=== PATIENT | female | born 1985 | race Caucasian/White ===

== ENCOUNTER → 2018-07-25 | Outpatient (CLI) | payer MEDICAID, MEDICARE ==
[~2018-07-25] MED LIST: AMIT25TA9; BIRTH CONTROL; DESV50TA PO; DIVA-20; HYDR1TAB8 OP; LORA0.5T PO; METR500T PO; NITR-65 PO; NITR100C3 PO; OLN5T PO; OMG1KC; PALI9TAB PO; PRNMV1T; ZPR80C; [UNRECOGNIZED DRUG - CODE]
--- NOTE | 2018-07-25 15:02 | Diagnostic Imaging Report ---
INDICATION: Bilateral breast pain and lumps. COMPARISON: Correlation is made with the diagnostic mammogram from earlier this same day. FINDINGS: Sonographic interrogation of the area of pain and lumps was performed bilaterally. This corresponds to the lower outer right breast and the entire outer left breast. No sonographic abnormality is seen. No solid or cystic breast mass is detected. IMPRESSION: No sonographic abnormality is seen. Continued clinical and self breast exams are recommended to confirm stability of the areas of palpable abnormality. ACR BI-RADS Category 1: Negative. Dictated by: Dictated on workstation # [id number]
--- NOTE | 2018-07-25 16:51 | Diagnostic Imaging Report ---
INDICATION: Bilateral breast pain and lumps. COMPARISON: No prior studies are available for comparison. EXAMINATION: Bilateral 2D and 3D diagnostic mammography was performed with CAD. FINDINGS: Scattered fibroglandular densities are identified, bilaterally. No mass or malignant appearing microcalcifications are seen. The axillae are unremarkable. IMPRESSION: No mammographic features suspicious for malignancy are identified. Even so, direct sonographic interrogation of the areas of pain and lumps is recommended and will be performed today. ACR BI-RADS Category 0: Incomplete. (Needs additional imaging evaluation). Result letter will be mailed to the patient. Note: At least 10% of breast cancer is not imaged by mammography. Dictated by: Dictated on workstation # [id number]
== END ==
LOC: RAD 12:43
PROVIDERS: ATTEND Nurse Practitioner Primary Care
DX: N64.4 Mastodynia (principal)
CPT/HCPCS: 76642; 77066

== ENCOUNTER → 2019-10-06 | Outpatient (CLI) | payer OTHER ==
--- NOTE | 2019-10-06 13:48 | Diagnostic Imaging Report ---
INDICATION: Wrist pain. COMPARISON: March 05, 2011 TECHNIQUE: Six radiographs of bilateral wrists dated October 06, 2019. FINDINGS: Right: No acute fracture or dislocation. No destructive osseous process. Carpal alignment and scapholunate distance are within normal limits. No suspicious radiopaque foreign body. Left: No acute fracture or dislocation. No destructive osseous process. Carpal alignment and scapholunate distances are within normal limits. No suspicious radiopaque foreign body. IMPRESSION: Unremarkable examination without acute osseous abnormality. Dictated by: Dictated on workstation # [id number]
== END ==
LOC: RAD FS 10:52
PROVIDERS: ATTEND Nurse Practitioner
DX: M25.531 Pain in right wrist (principal); M25.532 Pain in left wrist

== ENCOUNTER 2020-04-03 00:24 | Emergency (ER) | payer MEDICARE ==
[~2020-04-03] VITALS: Ht 152 cm; Wt 77.1 kg
--- OUTSIDE RECORDS SUMMARY | 2020-04-03 00:55 | XMS REPORT | Continuity of Care Document ---
Author Organization Unknown Address Unknown Phone Unavailable Allergies There is no data. Medications There is no data. Problems Date Dx Coded Attending Type Code Diagnosis Diagnosed By 07/27/2009 BRAD KELLOGG APRN V22.1 Obstetrical Services Antepartum Care Only 07/27/2009 BRAD KELLOGG APRN V72.42 reported home test was positive 01/07/2015 BRAD KELLOGG APRN 783.1 ABNORMAL WEIGHT GAIN 01/07/2015 BRAD KELLOGG APRN V70.0 ROUTINE GENERAL MEDICAL EXAMINATION AT [facility] Procedures Code Description Performed By Per formed On [facility] 01/07/2015 Results There is no data. Encounters ACCT No. Visit Date/Time Discharge Status Pt. Type Provider Facility Loc./Unit Complaint [id number] 01/07/2015 09:46:00 01/07/2015 23:59: 59 CLS Outpatient BRAD KELLOGG APRN
--- OUTSIDE RECORDS SUMMARY | 2020-04-03 00:55 | XMS REPORT | Clinical Summary ---
Author Author [facility] Organization [facility] Address Unknown Phone Unavailable Care Team Providers Care Route Deliverer Name Role Phone Melyssa Hernandez RN Unavailable Unavailable Diana Wood APRN Unavailable Carmen To NP PCP Unavailable Ligia Lomax MD Unavailable Rebecca Ingram RN Unavailable Unavailable Glenroy Guerrero MD Unavailable Arin Ruffin MD Unavailable Unavailable Krys Menjivar Unavailable Norma Monroy MD Unavailable [phone] Source Comments Some departments are not documenting in the electronic medical record. If you d o not see the information that you expected, contact Release of Information in [facility] Health Information Management department at [phone] for further assistan ce in locating additional records.[facility] Allergies No Known Allergies Medications No known medications Active Problems Problem Noted Date Dehiscence of closure of skin 02/16/2016 Dehiscence of incision 02/15/2016 Tobacco abuse 06/07/2015 Bipolar disorder in full remission 06/07/2015 Borderline personality disorder 06/07/2015 ERON III (vulvar intraepithelial neoplasia III) 06/06 Overview: Ms. Nieves is a 29 yo female presenting with ERON I and III on recent vulvar biopsy. HPI: Presented to Dr. Louis Moreno, PCP for y early exam. Reported genital warts. PAP collected and was negative for lesion or malignancy and was negative for HPV. Colposcopy performed by Dr. Louis Moreno 05/10/15 and findings c/w ERON I (vulvar skin tag) and ERON III (skin fro m posterior forchette). Both margins contain severe squamous dysplas ia laterally. Pertinent medical/social hx: H/O tobacco use. Using nicoderm patche s to quit. H/O Schitzophrenia, Bipolar disorder, d epression, anxiety and OCD. (twins per c/s, males). Presents today (08/23/15) for evaluatio n for response to topical silvadene d/t skin burning from Aldara applicatio n. 02/15/16 Partial simple bilateral vulvect flaca/wide excision of 2 vulvar lesions and laser ablation per Dr. WALSH. RV to ED the evening she was discharged from hospital d/t increased vulvar bleeding and pain. The L vulvar incision was found to have separ ated and was repaired in the ED. Pathology is with dysplasia only. Tessie r margins. Visit with JOHN Hernandez 03/06/16 with healing vulv ar surgical site. Presents 03/22/16 for PLAN: 1. Ms. Nieves is a 30 yo female with N III, s/p bilateral vulvectomy and laser ablation 02/15/[address] WALSH. 2. Visit to ED the evening of procedur e after discharge for wound separation and bleeding with increased pain. L vulvar site repaired. 3. Presents for 5 week postoperative v isit. 4. Exam is routine postoperative witho ut complication. 5. RV L ast Assessment & Plan: Has persistent lesions that have not re sponded to aldara. PLAN: Discussed with patient and /part ner need for surgery to excise. Do combination of laser and excision. Will set up. Family History Medical History Relation Name Comments Diabetes Maternal Grandmother Arthritis-rheumatoid Mother Depression Mother Diabetes Mother Hypertension Mother Cancer-Uterine Paternal Grandmother Relation Name Status Comments Maternal Grandmother Mother Paternal Grandmother Social History Date Tobacco Use Types Packs/Day Years Used Quit: 05/18/2015 Former Smoker Cigarettes 2 15 Smokeless Tobacco: Never Used Drinks/Week oz/Week Comments Alcohol Use No Sex Assigned at Date Recorded Not on file Industry Job Start Date Occupation Not on file Not on file Not on file Travel End Travel History Travel Start No recent travel history available. Last Filed Vital Signs Reading Time Taken Comments Vital Sign 123/76 06/05/2018 10:14 AM CDT Blood Pressure 79 06/05/2018 10:14 AM CDT Pulse 36.7 C (98.1 F) 02/29/2016 2:34 PM CDT Temperature - - Respiratory Rate 99% 06/05/2018 10:14 AM CDT Oxygen Saturation - - Inhaled Oxygen Concentration 77.7 kg (171 lb 3.2 oz) 06/05/2018 10:14 AM CDT Weight 155.5 cm (5' 1.22") 06/05/2018 10:14 AM CDT Height 32.12 06/05/2018 10:14 AM CDT Body Mass Index Plan of Treatment Health Maintenance Due Date Last Done Comments MEDICARE ANNUAL WELLNESS 1987 VISIT DTAP/TDAP VACCINES (1 - 2005 Tdap) HEPATITIS C SCREENING 2005 PHYSICAL (COMPREHENSIVE) 2005 EXAM INFLUENZA VACCINE 06/16/2020 CERVICAL CANCER SCREENING 06/05/2021 06/05/2018 HIV SCREENING Completed 06/06/2015 Results Not on filefrom Last 3 Months Insurance Type Payer Benefit Subscriber ID Effective Phone Address Plan / Dates Group Medicare MEDICARE MEDICARE xxxxxxxxxx 2011-P PART A AND resent B (Home) [place] [address] Advance Directives 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 needed
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
[2020-04-03 01:41] VITALS: BP 144/81
--- NOTE | 2020-04-03 07:53 | Diagnostic Imaging Report ---
PROCEDURE: CT head without contrast. TECHNIQUE: Multiple contiguous axial images were obtained through the brain without the use of intravenous contrast. Auto Exposure Controls were utilized during the CT exam to meet ALARA standards for radiation dose reduction. INDICATION: Headache. COMPARISON: 04/10/2011. FINDINGS: No intracranial hemorrhage, mass effect, hydrocephalus or extra-axial fluid collections. No CT evidence of territorial infarction. Osseous structures are intact. Mild mucosal thickening in the sphenoid sinus. Mastoids are clear. IMPRESSION: No acute intracranial CT findings. Dictated by: Dictated on workstation # [id number]
== END 2020-04-03 01:42 | disposition home or self-care (01) ==
LOC: EDUNIT# 00:24 → ER 00:26
DX: R51 Headache (principal); F41.0 Panic disorder [episodic paroxysmal anxiety]; Z87.891 Personal history of nicotine dependence; Z85.828 Personal history of other malignant neoplasm of skin; Z85.41 Personal history of malignant neoplasm of cervix uteri
CPT/HCPCS: 70450; 84703

== ENCOUNTER 2021-03-04 16:54 | Emergency (ER) | payer MEDICARE ==
[~2021-03-04] VITALS: Ht 152 cm; Wt 77.1 kg
[2021-03-04 17:09] VITALS: BP 154/84
[2021-03-04] MEDS ORDERED: METH4TAB10 PO ×2 (17:22→17:48)
--- NOTE | 2021-03-04 17:23 | ED Lower Extremity ---
General Chief Complaint: Lower Extremity Stated Complaint: RIGHT FOOT/LEG PAIN Source: patient Exam Limitations: no limitations History of Present Illness Date Seen by Provider: Mar 04, 2021 Time Seen by Provider: 17:19 Initial Comments To ER with right anterior ankle pain for about 1 to 2 weeks. No known injury. She had an area that was bruised and swollen. She has been icing it. However her range of motion is decreasing secondary to pain in the anterior ankle and proximal dorsal foot. Onset: just prior to arrival Severity: moderate Pain/Injury Location: right foot, right ankle Method of Injury: unknown Modifying Factors: Worse With Movement Allergies and Home Medications Allergies Coded Allergies: No Known Drug Allergies (Unverified , 09/08/10) Home Medications Hydrocodone Bit/Ibuprofen 1 Each Tablet, 1 EACH OP Q 4 - 6 HRS PRN PRN for PAIN Prescribed by: RL FARFAN on 04/05/142023 Methylprednisolone 4 Mg Tab.ds.pk, 4 MG PO UD PER DOSE PACK INSTRUCTIONS Prescribed by: ANUP CERVANTES on 03/04/21 172 Patient Home Medication List Home Medication List Reviewed: Yes Review of Systems Constitutional: see HPI EENTM: see HPI Respiratory: no symptoms reported Cardiovascular: no symptoms reported Genitourinary: no symptoms reported Musculoskeletal: see HPI Skin: no symptoms reported Psychiatric/Neurological: No Symptoms Reported Past Rkfjltc-Ljjynm-Lrmrvf Hx Patient Social History Type Used: Cigarettes Former Smoker, Quit: Sep 16, 2017 2nd Hand Smoke Exposure: No Recent Hopitalizations: Yes Past Medical History Surgeries: Yes Section, Thyroidectomy, Tonsillectomy Respiratory: No Cardiac: No Neurological: No Reproductive Disorders: Yes (3 MISCARRIAGES) Genitourinary: No UTI-Chronic Gastrointestinal: No Musculoskeletal: No Endocrine: No HEENT: No Cancer: Yes Skin, Cervical Psychosocial: Yes Anxiety, Schizophrenia Integumentary: No Blood Disorders: No Physical Exam Vital Signs Vital Signs - First Documented 03/04/21 17:09 Temp 36.8 Pulse 81 Resp 18 B/P (MAP) 154/84 (107) Pulse Ox 99 Capillary Refill : Height, Weight, BMI Height: 5'0" Weight: 120lbs. oz. 54.331988mi; 33.00 BMI Method:Stated General Appearance: WD/WN, no apparent distress HEENT: PERRL/EOMI, normal ENT inspection Neck: non-tender, full range of motion Respiratory: no respiratory distress, no accessory muscle use Hips: bilateral hip non-tender, bilateral hip normal inspection, bilateral hip normal range of motion Legs: bilateral leg non-tender, bilateral leg normal inspection, bilateral leg normal range of motion Knees: bilateral knee non-tender, bilateral knee normal inspection, bilateral knee normal range of motion Ankles: right ankle pain, right ankle soft tissue tenderness, right ankle other (Minimal ecchymosis to a silver dollar sized area distal anterior tibia) Neurologic/Psychiatric: alert, normal mood/affect, oriented x 3 Skin: normal color, warm/dry Progress/Results/Core Measures Results/Orders My Orders Orders - ANUP CERVANTES APRN Ankle, Right, 3 Views (03/04/21 17:17) Vital Signs/I&O 03/04/21 17:09 Temp 36.8 Pulse 81 Resp 18 B/P (MAP) 154/84 (107) Pulse Ox 99 Departure Impression Primary Impression: Tendonitis of ankle Disposition: 01 HOME, SELF-CARE Condition: Stable Departure-Patient Inst. Decision time for Depature: 17:21 Referrals: [facility] [place]) Primary Care Physician DIVINE CHENEY APRN (Family) Primary Care Physician Patient Instructions: NO INSTRUCTIONS GIVEN Add. Discharge Instructions: All discharge instructions reviewed with patient and/or family. Voiced un derstanding. Scripts Methylprednisolone (Methylprednisolone Dose Pack) 4 Mg Tab.ds.pk 4 MG PO UD for 6 Days, #21 PKG PER DOSE PACK INSTRUCTIONS. Prov: ANUP CERVANTES APRN 03/04/21 ANUP CERVANTES APRN Mar 04, 2021 17:22
--- NOTE | 2021-03-04 17:39 | Diagnostic Imaging Report ---
EXAM: Ankle, right, 3 views INDICATION: Swelling and right ankle pain x 2 weeks. COMPARISON: None. FINDINGS/ IMPRESSION: No fracture or malalignment. Soft tissue shadows are unremarkable. Dictated by: Dictated on workstation # [id number]
== END 2021-03-04 17:43 | disposition home or self-care (01) ==
LOC: EDUNIT# 16:54 → ER 16:56
DX: M77.9 Enthesopathy, unspecified (principal); Z79.891 Long term (current) use of opiate analgesic; Z79.52 Long term (current) use of systemic steroids
CPT/HCPCS: 73610

== ENCOUNTER 2023-02-23 15:22 | Emergency (ER) | payer MEDICAID, MEDICARE ==
[~2023-02-23] VITALS: Ht 165 cm; Wt 77.0 kg
[~2023-02-23 15:22] MED LIST changes: +METH4TAB10 PO
[2023-02-23 15:47] LABS: BILIRUBIN,URINE NEGATIVE (NEGATIVE); CLARITY,URINE CLEAR; COLOR,URINE YELLOW; GLUCOSE, URINE (UA) NEGATIVE (NEGATIVE); KETONES,URINE 1+ (NEGATIVE); LEUKOCYTE ESTERASE ,URINE NEGATIVE (NEGATIVE); NITRITE,URINE NEGATIVE (NEGATIVE); PROTEIN,URINE 2+ (NEGATIVE)
--- NOTE | 2023-02-23 15:54 | ED General ---
General Chief Complaint: General Problems/Pain Stated Complaint: NAUSEA/MIGRAINE/WEAKNESS History of Present Illness Date Seen by Provider: Feb 23, 2023 Time Seen by Provider: 15:40 Initial Comments 37 year old female, patient of Dr. Ornelas at [facility]. + for syphilis, treated yesterday with Bicillin 2.4 million units IM. Since then headache, N/V. Reports minimal fluid and no food intake today due to the nausea and vomiting. Had full STI work up, remainder negative. US 02/12/23 showed normal single interuterine per phone conversation PRODUCER at [facility]. Patient reports being 8 weeks gestation, 6 previous pregnancies, one set of twins. Evaluated at [facility] for vaginal spotting 02/21/23, has improved and occasionally noting dark brown blood when urinating. Wearing pad and no bleeding noted. Timing/Duration: 1-2 Days Allergies and Home Medications Allergies Coded Allergies: No Known Drug Allergies (Unverified , 09/08/10) Patient Home Medication List Home Medication List Reviewed: Yes Hydrocodone Bit/Ibuprofen (Vicoprofen 200-7.5 Mg Tab) 1 Each Tablet, 1 EACH OP Q 4 - 6 HRS PRN PRN for PAIN Prescribed by: RL FARFAN on 04/05/142023 Methylprednisolone (Methylprednisolone Dose Pack) 4 Mg Tab.ds.pk, 4 MG PO UD Prescribed by: ANUP CERVANTES on 03/04/21 174 Ondansetron (Ondansetron Odt) 4 Mg Tab.rapdis, 4 MG PO Q6H PRN for NAUSEA/VOMITING Prescribed by: PONCHO LANDIS on 02/23/23 1646 Review of Systems Review of Systems Constitutional: see HPI, malaise, weakness Respiratory: no symptoms reported, see HPI Cardiovascular: no symptoms reported, see HPI Gastrointestinal: see HPI; No abdominal pain; nausea, vomiting : Yes All Other Systems Reviewed Negative Unless Noted: Yes Past Vzsmerl-Wlxgzq-Mgmolx Hx Past Medical History Surgeries: Yes Section, Thyroidectomy, Tonsillectomy Respiratory: No Cardiac: No Neurological: No : Yes Hx : 7 Hx Para: 4 Hx Total # of Abortions (Sp): 3 Reproductive Disorders: Yes (3 MISCARRIAGES) Genitourinary: No UTI-Chronic Gastrointestinal: No Musculoskeletal: No Endocrine: No HEENT: No Cancer: Yes Skin, Cervical Psychosocial: Yes Anxiety, Schizophrenia Integumentary: No Blood Disorders: No Family Medical History Reviewed Nursing Family Hx Physical Exam Vital Signs Vital Signs - First Documented 02/23/23 15:35 Temp 36.1 Pulse 78 Resp 18 B/P (MAP) 128/75 (92) Pulse Ox 98 Capillary Refill : Height, Weight, BMI Height: 5'0" Weight: 120lbs. oz. 54.060696fj; 33.00 BMI Method:Stated General Appearance: No Apparent Distress, WD/WN HEENT: PERRL/EOMI, TMs Normal, Normal ENT Inspection, Pharynx Normal, Moist Mucous Membranes Neck: Full Range of Motion, Normal Inspection, Non Tender, Supple Respiratory: Chest Non Tender, Lungs Clear, Normal Breath Sounds Cardiovascular: Regular Rate, Rhythm, No Edema, No Murmur, Normal Peripheral Pulses Gastrointestinal: Normal Bowel Sounds, Non Tender, Soft Extremity: Normal Capillary Refill, Normal Inspection, Normal Range of Motion, Non Tender, No Calf Tenderness, No Pedal Edema Neurologic/Psychiatric: Alert, Oriented x3, No Motor/Sensory Deficits, Normal Mood/Affect Progress/Results/Core Measures Suspected Sepsis SIRS Temperature: Pulse: Respiratory Rate: Laboratory Tests 02/23/23 15:34: White Blood Count 16.7H Blood Pressure / Mean: Laboratory Tests 02/23/23 15:34: Creatinine 0.69, Platelet Count 271, Total Bilirubin 0.4 Results/Orders Lab Results Laboratory Tests Test 02/23/23 15:34 02/23/23 15:40 Range/Units White Blood Count 16.7 H 4.3-11.0 10^3/uL Red Blood Count 4.56 3.80-5.11 10^6/uL Hemoglobin 14.9 11.5-16.0 g/dL Hematocrit 43 35-52 % Mean Corpuscular Volume 94 80-99 fL Mean Corpuscular Hemoglobin 33 25-34 pg Mean Corpuscular Hemoglobin Concent 35 32-36 g/dL Red Cell Distribution Width 12.6 10.0-14.5 % Platelet Count 271 130-400 10^3/uL Mean Platelet Volume 9.4 9.0-12.2 fL Immature Granulocyte % (Auto) 1 % Neutrophils (%) (Auto) 83 H 42-75 % Lymphocytes (%) (Auto) 12 12-44 % Monocytes (%) (Auto) 5 0-12 % Eosinophils (%) (Auto) 0 0-10 % Basophils (%) (Auto) 0 0-10 % Neutrophils # (Auto) 13.8 H 1.8-7.8 10^3/uL Lymphocytes # (Auto) 1.9 1.0-4.0 10^3/uL Monocytes # (Auto) 0.8 0.0-1.0 10^3/uL Eosinophils # (Auto) 0.1 0.0-0.3 10^3/uL Basophils # (Auto) 0.0 0.0-0.1 10^3/uL Immature Granulocyte # (Auto) 0.1 0.0-0.1 10^3/uL Neutrophils % (Manual) 81 % Lymphocytes % (Manual) 15 % Monocytes % (Manual) 4 % Eosinophils % (Manual) 0 % Basophils % (Manual) 0 % Band Neutrophils 0 % Blood Morphology Comment NORMAL Sodium Level 138 135-145 MMOL/L Potassium Level 3.6 3.6-5.0 MMOL/L Chloride Level 104 98-107 MMOL/L Carbon Dioxide Level 25 21-32 MMOL/L Anion Gap 9 5-14 MMOL/L Blood Urea Nitrogen 12 7-18 MG/DL Creatinine 0.69 0.60-1.30 MG/DL Estimat Glomerular Filtration Rate 116 BUN/Creatinine Ratio 17 Glucose Level 94 70-105 MG/DL Calcium Level 9.7 8.5-10.1 MG/DL Corrected Calcium 9.5 8.5-10.1 MG/DL Total Bilirubin 0.4 0.1-1.0 MG/DL Aspartate Amino Transf (AST/SGOT) 26 5-34 U/L Alanine Aminotransferase (ALT/SGPT) 73 H 0-55 U/L Alkaline Phosphatase 150 H 40-136 U/L Total Protein 7.3 6.4-8.2 GM/DL Albumin 4.2 3.2-4.5 GM/DL Urine Color YELLOW Urine Clarity CLEAR Urine pH 6.0 5-9 Urine Specific [place] 1.025 H 1.016-1.022 Urine Protein 2+ H NEGATIVE Urine Glucose (UA) NEGATIVE NEGATIVE Urine Ketones 1+ H NEGATIVE Urine Nitrite NEGATIVE NEGATIVE Urine Bilirubin NEGATIVE NEGATIVE Urine Urobilinogen 1.0 < = 1.0 MG/DL Urine Leukocyte Esterase NEGATIVE NEGATIVE Urine RBC (Auto) 3+ H NEGATIVE Urine RBC 50-100 H /HPF Urine WBC NONE /HPF Urine Squamous Epithelial Cells RARE /HPF Urine Crystals NONE /LPF Urine Bacteria NEGATIVE /HPF Urine Casts NONE /LPF Urine Mucus SMALL H /LPF Urine Culture Indicated NO My Orders Orders - PONCHO LANDIS Ua Culture If Indicated (02/23/23 15:42) Urine Bedside (02/23/23 15:42) Cbc With Automated Diff (02/23/23 16:01) Comprehensive Metabolic Panel (02/23/23 16:01) Ed Iv/Invasive Line Start (02/23/23 16:01) Ns Iv 1000 Ml (Sodium Chloride 0.9%) (02/23/23 16:15) Ondansetron Injection (Zofran Injectio (02/23/23 16:15) Acetaminophen Tablet/Caplet (Tylenol T (02/23/23 16:01) Manual Differential (02/23/23 15:34) Medications Given in ED Current Medications Medications Dose Ordered Sig/Munir Route Start Time Stop Time Status Last Admin Dose Admin Ondansetron HCl 4 mg ONCE ONCE IVP 02/23/23 16:15 02/23/23 16:16 DC 02/23/23 16:10 4 MG Vital Signs/I&O 02/23/23 02/23/23 15:35 17:10 Temp 36.1 36.1 Pulse 78 78 Resp 18 18 B/P (MAP) 128/75 (92) 128/75 Pulse Ox 98 98 Capillary Refill : Progress Note : Time: 15:40 Progress Note Patient seen and evaluated, Urine positive. Will check labs, normal saline 1 L per IV, Zofran 4 mg IV for nausea and vomiting, will wait 15 to 20 minutes after the Zofran and give Tylenol 650 mg for the headache. Patient reassured that her symptoms could be related to the Bicillin, she reports minimal to no nausea and vomiting through this to this date. 1620 patient reports improved N/V. Provided CDC guidelines on syphilis and further testing during . Patient and were concerned if it could be false +, informed there would be no reason to test today, since treatment was yesterday. Follow up testing to assure treatment was effective will show if past test was accurate. taking water with no N/V 1700 Discharge instructions and return precautions reviewed. Encouraged spouse and any other partners to be tested and no sexual activity until testing is negative. Patient had no vomiting throughout her stay here. Departure Impression Primary Impression: First trimester Additional Impression: Syphilis Disposition: 01 HOME, SELF-CARE Condition: Improved Departure-Patient Inst. Decision time for Depature: 16:30 Referrals: [facility] (PCP) Primary Care Physician DIVINE CHENEY APRN (Family) Primary Care Physician Patient Instructions: Nausea and Vomiting of , Syphilis (DC), Syphilis Screening Test Add. Discharge Instructions: [place] diet and increase fluids for the next 24 to 48 hours. Resume taking your vitamin. Keep your scheduled follow-up with Dr. Sinclair. Since you tested + for syphilis, any sexual partners need to be tested and no sexual activity until they have tested negative, so you don't get re-infected. Use Zofran every 6-8 hours as needed for nausea and vomiting. You may take Tylenol 650 mg every 8 hours for headache. Return to the emergency department for new, urgent healthcare needs. All discharge instructions reviewed with patient and/or family. Voiced understanding. Scripts Ondansetron (Ondansetron Odt) 4 Mg Tab.rapdis 4 MG PO Q6H PRN for NAUSEA/VOMITING, #8 TAB 0 Refills Prov: PONCHO LANDIS 02/23/23 Copy Copies To 1: JASON SINCLAIR MD, AMY ARNP Feb 23, 2023 15:54
[2023-02-23 15:56] LABS: RBC,URINE 50-100 /HPF
[2023-02-23 15:57] LABS: BACTERIA,URINE NEGATIVE /HPF; SQUAMOUS EPITHELIAL CELL,UR RARE /HPF
[2023-02-23] MEDS ORDERED: ACETAMINOPHEN 325 MG TABLET PO STA (16:01)
[2023-02-23 16:07] LABS: BASOPHILS % (AUTO) 0 % (0-10); EOSINOPHILS # (AUTO) 0.1 10^3/uL (0.0-0.3); EOSINOPHILS % (AUTO) 0 % (0-10); HEMATOCRIT 43 % (35-52); HEMOGLOBIN 14.9 g/dL (11.5-16.0); LYMPHOCYTES # (AUTO) 1.9 10^3/uL (1.0-4.0); LYMPHOCYTES % (AUTO) 12 % (12-44); MEAN CORPUSCULAR HEMOGLOBIN 33 pg (25-34); MEAN CORPUSCULAR HGB CONC 35 g/dL (32-36); MEAN CORPUSCULAR VOLUME 94 fL (80-99); MEAN PLATELET VOLUME 9.4 fL (9.0-12.2); MONOCYTES # (AUTO) 0.8 10^3/uL (0.0-1.0); MONOCYTES % (AUTO) 5 % (0-12); NEUTROPHILS # (AUTO) 13.8 10^3/uL (1.8-7.8); NEUTROPHILS % (AUTO) 83 % (42-75); PLATELET COUNT 271 10^3/uL (130-400); WHITE BLOOD COUNT 16.7 10^3/uL (4.3-11.0)
[2023-02-23 16:09] LABS: ALBUMIN 4.2 GM/DL (3.2-4.5); POTASSIUM 3.6 MMOL/L (3.6-5.0)
[2023-02-23 16:11] LABS: CALCIUM 9.7 MG/DL (8.5-10.1)
[2023-02-23 16:12] LABS: TOTAL PROTEIN 7.3 GM/DL (6.4-8.2)
[2023-02-23 16:14] LABS: BILIRUBIN,TOTAL 0.4 MG/DL (0.1-1.0)
[2023-02-23 16:15] LABS: CREATININE SERUM 0.69 MG/DL (0.60-1.30)
[2023-02-23] MEDS ORDERED: ONDANSETRON 4 MG/2 ML (SDV) Z0FRAN IVP ONE (16:15)
[2023-02-23] MEDS ORDERED: NS IV 1000 ML 1,000 ML IV SCH (16:15)
[2023-02-23 16:46] LABS: BAND NEUTROPHILS 0 %; BASOPHILS % (MANUAL) 0 %; EOSINOPHILS % (MANUAL) 0 %; LYMPHOCYTES % (MANUAL) 15 %; MONOCYTES % (MANUAL) 4 %; NEUTROPHILS % (MANUAL) 81 %; RBC MORPH NORMAL
[2023-02-23] MEDS ORDERED: ONDA4TAB11 PO (16:46)
[2023-02-23 17:10] VITALS: BP 128/75
== END 2023-02-23 17:10 | disposition home or self-care (01) ==
LOC: EDUNIT# 15:22 → ER 15:26
DX: O98.111 Syphilis complicating pregnancy, first trimester (principal); A53.9 Syphilis, unspecified; O21.9 Vomiting of pregnancy, unspecified; Z3A.08 8 weeks gestation of pregnancy; Z28.310 Unvaccinated for COVID-19
CPT/HCPCS: 36415; 80053; 81000; 84703; 85007; 85027

== ENCOUNTER 2023-03-31 14:13 | Emergency (ER) | payer MEDICAID ==
[~2023-03-31] VITALS: Ht 152 cm; Wt 78.0 kg
[~2023-03-31 14:13] MED LIST changes: +ONDA4TAB11 PO
[2023-03-31 14:21] VITALS: BP 139/95
--- NOTE | 2023-03-31 14:36 | ED Abdominal Pain ---
General Chief Complaint: OB < 20 WEEKS Stated Complaint: 13 WEEKS /VAG BLEEDING/CONTRACTIONS Nursing Triage Note: STATES SHE IS 13 WEEKS GESTATION AND HAS BEEN HAVING VAGINAL BLEEDING SINCE SATURDAY. NOW STATES SHE IS HAVING ABD/BACK PAIN. Source of Information: Patient Exam Limitations: No Limitations History of Present Illness Date Seen by Provider: Mar 31, 2023 Time Seen by Provider: 14:33 Initial Comments Patient is a 37-year-old female who is G7, P3 with a history of miscarriage and twins who presents ED with vaginal bleeding and, pelvic pain and many contractions. Patient states she saw her primary care physician Dr. Short last Saturday. She had lab work drawn. Concern for potential miscarriage. About a month ago she had episode of hemorrhaging which eventually stopped. According to patient they did note cardiac activity with her recent ultrasound. She has had a positive intrauterine within the past few months. She is around 13 weeks . Lower abdominal cramping, suprapubic discomfort and low back cramping since Saturday. She reports bright red blood with wiping and with a small amount on pads. She reports few small clots. She denies of any pa in with urination frequent urination vaginal discharge, chest pain, shortness of breath, cough, headache, dizziness. No history of hypertension or diabetes. She is currently on prenatals. Patient denies nausea, vomiting, diarrhea, sore throat, ear pain, rash, headache, dizziness, visual changes Allergies and Home Medications Allergies Coded Allergies: No Known Drug Allergies (Unverified , 09/08/10) Patient Home Medication List Home Medication List Reviewed: Yes Hydrocodone Bit/Ibuprofen (Vicoprofen 200-7.5 Mg Tab) 1 Each Tablet, 1 EACH OP Q 4 - 6 HRS PRN PRN for PAIN Prescribed by: RL FARFAN on 04/05/142023 Methylprednisolone (Methylprednisolone Dose Pack) 4 Mg Tab.ds.pk, 4 MG PO UD Prescribed by: ANUP CERVANTES on 03/04/21 174 Ondansetron (Ondansetron Odt) 4 Mg Tab.rapdis, 4 MG PO Q6H PRN for NAUSEA/VOMITING Prescribed by: PONCHO LANDIS on 02/23/23 1646 Review of Systems Review of Systems Constitutional: No chills, No diaphoresis, No fever, No malaise EENTM: No Blurred Vision, No Double Vision Respiratory: Denies Cough Cardiovascular: Denies Chest Pain Gastrointestinal: Abdominal Pain; Denies Diarrhea, Denies Nausea, Denies Vomiting Genitourinary: Denies Burning, Denies Discharge, Denies Drainage, Denies Frequency, Denies Flank Pain, Denies Hematuria, Denies Pain; Other (vaginal bleeding) Musculoskeletal: back pain; No joint pain All Other Systems Reviewed Negative Unless Noted: Yes Past Luitzwb-Ddfcnj-Etsatg Hx Patient Social History Tobacco Use?: Yes Tobacco type used: Cigarettes Substance use?: No Alcohol Use?: No Past Medical History Surgeries: Yes Section, Thyroidectomy, Tonsillectomy Respiratory: No Cardiac: No Neurological: No Expected Date of Delivery: Nov 06, 2023 Reproductive Disorders: Yes (3 MISCARRIAGES) Genitourinary: No UTI-Chronic Gastrointestinal: No Musculoskeletal: No Endocrine: No HEENT: No Cancer: Yes Skin, Cervical Psychosocial: Yes Anxiety, Schizophrenia Integumentary: No Blood Disorders: No Physical Exam Vital Signs Vital Signs - First Documented 03/31/23 14:21 Temp 36.2 Pulse 74 Resp 16 B/P (MAP) 139/95 (110) Pulse Ox 98 O2 Delivery Room Air Capillary Refill : Less Than 3 Seconds Height/Weight/BMI Height: 5'0" Weight: 120lbs. oz. 54.350888fo; 33.00 BMI Method:Stated General Appearance: WD/WN, no apparent distress HEENT: PERRL/EOMI, normal ENT inspection, TMs normal, pharynx normal Neck: non-tender, full range of motion, supple Respiratory: chest non-tender, lungs clear, normal breath sounds, no respiratory distress, no accessory muscle use Cardiovascular: regular rate, rhythm, no edema, no gallop, no JVD Gastrointestinal: normal bowel sounds, soft, tenderness (Suprapubic tenderness. No right lower quadrant tenderness, mild left lower quadrant tenderness without rebound or guarding.) Extremities: normal range of motion, non-tender, normal inspection, no pedal edema Back: normal inspection, no CVA tenderness Neurologic/Psychiatric: oyster floater II-XII nml as tested, no motor/sensory deficits, alert, normal mood/affect, oriented x 3 Skin: normal color, warm/dry Progress/Results/Core Measures Results/Orders Lab Results Laboratory Tests Test 03/31/23 14:35 7/16/23 14:40 Range/Units White Blood Count 12.2 H 4.3-11.0 10^3/uL Red Blood Count 4.60 3.80-5.11 10^6/uL Hemoglobin 14.9 11.5-16.0 g/dL Hematocrit 44 35-52 % Mean Corpuscular Volume 96 80-99 fL Mean Corpuscular Hemoglobin 32 25-34 pg Mean Corpuscular Hemoglobin Concent 34 32-36 g/dL Red Cell Distribution Width 12.7 10.0-14.5 % Platelet Count 279 130-400 10^3/uL Mean Platelet Volume 9.1 9.0-12.2 fL Immature Granulocyte % (Auto) 0 % Neutrophils (%) (Auto) 77 H 42-75 % Lymphocytes (%) (Auto) 17 12-44 % Monocytes (%) (Auto) 5 0-12 % Eosinophils (%) (Auto) 1 0-10 % Basophils (%) (Auto) 0 0-10 % Neutrophils # (Auto) 9.4 H 1.8-7.8 X 10^3 Lymphocytes # (Auto) 2.1 1.0-4.0 X 10^3 Monocytes # (Auto) 0.6 0.0-1.0 X 10^3 Eosinophils # (Auto) 0.1 0.0-0.3 10^3/uL Basophils # (Auto) 0.0 0.0-0.1 10^3/uL Immature Granulocyte # (Auto) 0.0 0.0-0.1 10^3/uL Sodium Level 140 135-145 MMOL/L Potassium Level 3.2 L 3.6-5.0 MMOL/L Chloride Level 106 98-107 MMOL/L Carbon Dioxide Level 24 21-32 MMOL/L Anion Gap 10 5-14 MMOL/L Blood Urea Nitrogen 12 7-18 MG/DL Creatinine 0.73 0.60-1.30 MG/DL Estimat Glomerular Filtration Rate 110 BUN/Creatinine Ratio 16 Glucose Level 92 70-105 MG/DL Calcium Level 9.7 8.5-10.1 MG/DL Corrected Calcium 9.6 8.5-10.1 MG/DL Total Bilirubin 0.3 0.1-1.0 MG/DL Aspartate Amino Transf (AST/SGOT) 16 5-34 U/L Alanine Aminotransferase (ALT/SGPT) 20 0-55 U/L Alkaline Phosphatase 136 40-136 U/L Total Protein 7.2 6.4-8.2 GM/DL Albumin 4.1 3.2-4.5 GM/DL Human Chorionic Gonadotropin, Quant 425 H <5 MIU/ML Urine Color YELLOW Urine Clarity SL CLOUDY Urine pH 6.5 5-9 Urine Specific [place] 1.015 L 1.016-1.022 Urine Protein 1+ H NEGATIVE Urine Glucose (UA) NEGATIVE NEGATIVE Urine Ketones NEGATIVE NEGATIVE Urine Nitrite NEGATIVE NEGATIVE Urine Bilirubin NEGATIVE NEGATIVE Urine Urobilinogen 0.2 < = 1.0 MG/DL Urine Leukocyte Esterase NEGATIVE NEGATIVE Urine RBC (Auto) 3+ H NEGATIVE Urine RBC 10-25 H /HPF Urine WBC NONE /HPF Urine Squamous Epithelial Cells RARE /HPF Urine Crystals NONE /LPF Urine Bacteria NEGATIVE /HPF Urine Casts NONE /LPF Urine Mucus NEGATIVE /LPF Urine Culture Indicated NO My Orders Orders - SOHAIL MCADAMS Cbc With Automated Diff (03/31/23 14:32) Comprehensive Metabolic Panel (03/31/23 14:32) Hcg,Quantitative (03/31/23 14:32) Abo Rh Type (03/31/23 14:32) Ua Culture If Indicated (03/31/23 14:36) Us Ob<14 Wks Sngle W/Transvag (03/31/23 15:33) Vital Signs/I&O 03/31/23 14:21 Temp 36.2 Pulse 74 Resp 16 B/P (MAP) 139/95 (110) Pulse Ox 98 O2 Delivery Room Air Blood Pressure Mean: 110 Departure Communication (PCP) Patient is G7, P3. Presents ED with lower abdominal cramping and vaginal bleeding. She reports small amount of bright red blood with wiping. She reports going through a few pads with a small amount. She does not appear in acute distress. History of miscarriage. Currently on prenatals. Follows Dr. Short. Had a similar episode about a month ago that resolved on itself. She states she had a positive intrauterine with ultrasound. Due to current complaint CBC, CMP, urinalysis was ordered. Denies any vaginal discharge or concern for sexual transmitted affection. Refused pelvic exam. Urinalysis positive for hematuria without evidence of infection. CBC CMP grossly unremarkable. Normal hemoglobin. White blood count 12.2. Potassium 3.2. Patient beta quant 452. Concern beta hcg being low and states she is about 13 weeks . She is not hypertensive. Bedside ultrasound did not note any cardiac activity. Ultrasound here at this time agreed to perform ultrasound. Concern for potential miscarriage. Before obtaining results from her ultrasound patient was eagerly wanting to leave. I Was not able to confirm results to patient. My concern would be she may be a candidate for D&C and would need surgeon consult. She acknowledges and states she will follow-up with her provider Dr. Short. ultrasound showed Blighted ovum at approximately 7 weeks gestation. Attempted to call her cell phone did not receive any call back. She is Rh+. Does not need RhoGAM. She is aware that she needs to follow-up with her [employer] before discussing results.. Impression Primary Impression: Blighted ovum Disposition: HOME, SELF-CARE Condition: Stable Departure-Patient Inst. Decision time for Depature: 17:00 Referrals: [facility] (PCP) Primary Care Physician DIVINE CHENEY APRN (Family) Primary Care Physician Patient Instructions: Bleeding In Early Add. Discharge Instructions: Need to follow-up with Dr. Short with these results All discharge instructions reviewed with patient and/or family. Voiced understanding. Work/School Note: Work Release Form Date Seen in the Emergency Department: Mar 31, 2023 Return to Work: Apr 02, 2023 Restrictions: Excuse from work 03/29 and 03/30 SOHAIL MCADAMS Mar 31, 2023 14:36
[2023-03-31 14:46] LABS: BASOPHILS % (AUTO) 0 % (0-10); EOSINOPHILS # (AUTO) 0.1 10^3/uL (0.0-0.3); EOSINOPHILS % (AUTO) 1 % (0-10); HEMATOCRIT 44 % (35-52); HEMOGLOBIN 14.9 g/dL (11.5-16.0); LYMPHOCYTES # (AUTO) 2.1 X 10^3 (1.0-4.0); LYMPHOCYTES % (AUTO) 17 % (12-44); MEAN CORPUSCULAR HEMOGLOBIN 32 pg (25-34); MEAN CORPUSCULAR HGB CONC 34 g/dL (32-36); MEAN CORPUSCULAR VOLUME 96 fL (80-99); MEAN PLATELET VOLUME 9.1 fL (9.0-12.2); MONOCYTES # (AUTO) 0.6 X 10^3 (0.0-1.0); MONOCYTES % (AUTO) 5 % (0-12); NEUTROPHILS # (AUTO) 9.4 X 10^3 (1.8-7.8); NEUTROPHILS % (AUTO) 77 % (42-75); PLATELET COUNT 279 10^3/uL (130-400); WHITE BLOOD COUNT 12.2 10^3/uL (4.3-11.0)
[2023-03-31 14:54] LABS: BILIRUBIN,URINE NEGATIVE (NEGATIVE); CLARITY,URINE SL CLOUDY; COLOR,URINE YELLOW; GLUCOSE, URINE (UA) NEGATIVE (NEGATIVE); KETONES,URINE NEGATIVE (NEGATIVE); LEUKOCYTE ESTERASE ,URINE NEGATIVE (NEGATIVE); NITRITE,URINE NEGATIVE (NEGATIVE); PH,URINE 6.5 (5-9); PROTEIN,URINE 1+ (NEGATIVE)
[2023-03-31 14:56] LABS: ALBUMIN 4.1 GM/DL (3.2-4.5); POTASSIUM 3.2 MMOL/L (3.6-5.0)
[2023-03-31 14:57] LABS: CALCIUM 9.7 MG/DL (8.5-10.1)
[2023-03-31 14:58] LABS: TOTAL PROTEIN 7.2 GM/DL (6.4-8.2)
[2023-03-31 15:00] LABS: BILIRUBIN,TOTAL 0.3 MG/DL (0.1-1.0)
[2023-03-31 15:02] LABS: CREATININE SERUM 0.73 MG/DL (0.60-1.30)
[2023-03-31 15:05] LABS: BACTERIA,URINE NEGATIVE /HPF; SQUAMOUS EPITHELIAL CELL,UR RARE /HPF
--- NOTE | 2023-03-31 17:32 | Diagnostic Imaging Report ---
INDICATION: Menorrhagia Transabdominal and endovaginal 1st trimester OB ultrasound. There is intrauterine gestational sac which has an irregular shape. There is a pole present that measures 9 mm. This corresponds to gestational age of 7 weeks. There is no heartbeat detected. Yolk sac is contracted. There is a 2 cm cyst on left ovary. Right ovary is unremarkable. There is no free fluid. Placenta location is indeterminate. IMPRESSION: Blighted ovum at approximately 7 weeks gestation. Dictated by: Dictated on workstation # [id number]
== END 2023-03-31 17:14 | disposition home or self-care (01) ==
LOC: EDUNIT# 14:13 → ER 14:16
DX: O02.0 Blighted ovum and nonhydatidiform mole (principal); O99.331 Smoking (tobacco) complicating pregnancy, first trimester; F17.210 Nicotine dependence, cigarettes, uncomplicated; Z3A.01 Less than 8 weeks gestation of pregnancy
CPT/HCPCS: 36415; 76801; 76817; 80053; 81000; 84702; 85025; 86900; 86901

== ENCOUNTER 2023-07-22 23:19 | Emergency (ER) | payer MEDICAID, MEDICARE ==
[~2023-07-22] VITALS: Ht 152 cm; Wt 80.3 kg
[2023-07-22 23:26] VITALS: BP 134/97
[2023-07-23] MEDS ORDERED: IBUP-1780 PO (22:08)
[2023-07-23] MEDS ORDERED: DOXY100T2 PO (22:08)
== END 2023-07-23 00:01 | disposition left against medical advice (07) ==
LOC: EDUNIT# 23:19 → ER 23:22
DX: O03.9 Complete or unspecified spontaneous abortion without complication (principal)
CPT/HCPCS: 99282

== ENCOUNTER 2023-07-23 16:18 | Day surgery (SDC) | payer MEDICAID, MEDICARE ==
[2023-07-23] VITALS (8 sets, daily range): BP systolic 88–116; BP diastolic 41–67
[~2023-07-23] VITALS: Ht 152 cm; Wt 77.0 kg
[2023-07-23 17:33] LABS: BASOPHILS % (AUTO) 0 % (0-10); EOSINOPHILS # (AUTO) 0.2 10^3/uL (0.0-0.3); EOSINOPHILS % (AUTO) 2 % (0-10); HEMATOCRIT 35 % (35-52); HEMOGLOBIN 11.8 g/dL (11.5-16.0); LYMPHOCYTES % (AUTO) 17 % (12-44); MEAN CORPUSCULAR HEMOGLOBIN 32 pg (25-34); MEAN CORPUSCULAR HGB CONC 33 g/dL (32-36); MEAN CORPUSCULAR VOLUME 97 fL (80-99); MEAN PLATELET VOLUME 9.1 fL (9.0-12.2); MONOCYTES # (AUTO) 0.6 10^3/uL (0.0-1.0); MONOCYTES % (AUTO) 5 % (0-12); NEUTROPHILS # (AUTO) 8.9 10^3/uL (1.8-7.8); NEUTROPHILS % (AUTO) 76 % (42-75); PLATELET COUNT 355 10^3/uL (130-400); WHITE BLOOD COUNT 11.8 10^3/uL (4.3-11.0)
[2023-07-23 17:42] LABS: ALBUMIN 4.3 GM/DL (3.2-4.5); POTASSIUM 3.4 MMOL/L (3.6-5.0)
[2023-07-23 17:43] LABS: CALCIUM 9.9 MG/DL (8.5-10.1); INR 0.9 (0.8-1.4); PROTHROMBIN TIME PATIENT 12.6 SEC (12.2-14.7)
[2023-07-23 17:45] LABS: TOTAL PROTEIN 7.6 GM/DL (6.4-8.2)
--- NOTE | 2023-07-23 17:46 | ED GU-Female ---
General Chief Complaint: - Reproductive Stated Complaint: VAGINAL BLEEDING | POST-MISCARRIAGE Nursing Triage Note: PT AMBULATORY TO ER. PT REPORTS MISCARRIAGE ON 07/19, WAS 11 WEEKS ALONG. PT WAS SEEN AT [facility], MISCARRIAGE CONFIRMED THERE. PT REPORTS VAGINAL BLEEDING AND ABD PAIN/CRAMPING THAT STARTED YESTERDAY. PT CAME TO ER LAST NIGHT BUT HAD TO LEAVE PRIOR TO SEEING A DOCTOR. PT REPORTS THE VAGINAL BLEEDING IS PERSISTING TODAY. REPORTS NOW DIZZY AND LIGHT-HEADED. REPORTS SOAKING 2 PADS/HR AND ALSO HAD IT 'POUR IN THE TOILET'. Source: patient Exam Limitations: no limitations (SOHAIL MCADAMS) History of Present Illness Date Seen by Provider: Jul 23, 2023 Time Seen by Provider: 17:43 Initial Comments Patient is a 38-year-old female who presents to the ED for lower abdominal cramping, vaginal bleeding and back pain. States started having bleeding on July 18. Patient Went to draw to ER on the july and had a ultrasound concern for miscarriage. She states she was about 11 weeks at that time. Last menstrual cycle about 3 months ago. She had a miscarriage this past March. She is G8, P3. History of miscarriages in the past. She reports nausea without vomiting or diarrhea. She states she is had intermittent vaginal bleeding going through several pads as well as passing clots and bright red blood in the toilet. She states blood is gushing out. She is not on blood thinners. She denies of any fever, chills, chest pain, shortness of breath. Denies of any urinary symptoms. (SOHAIL MCADAMS) Allergies and Home Medications Allergies Coded Allergies: No Known Drug Allergies (Unverified , 09/08/10) Patient Home Medication List Home Medication List Reviewed: Yes (SOHAIL MCADAMS) Doxycycline Hyclate (Doxycycline Hyclate) 100 Mg Tablet, 100 MG PO BID Prescribed by: Torrie Brown on 07/23/232207 Ibuprofen (Ibuprofen) 800 Mg Tablet, 800 MG PO Q4H PRN for PAIN Prescribed by: Torrie Brown on 07/23/232207 Discontinued Medications Hydrocodone Bit/Ibuprofen (Vicoprofen 200-7.5 Mg Tab) 1 Each Tablet, 1 EACH OP Q 4 - 6 HRS PRN PRN for PAIN Prescribed by: RL FARFAN on 04/05/142023 Last Action: Reviewed Methylprednisolone (Methylprednisolone Dose Pack) 4 Mg Tab.ds.pk, 4 MG PO UD Prescribed by: ANUP CERVANTES on 03/04/21 174 Last Action: Reviewed Ondansetron (Ondansetron Odt) 4 Mg Tab.rapdis, 4 MG PO Q6H PRN for NAUSEA/VOMITING Prescribed by: PONCHO LANDIS on 02/23/23 1646 Last Action: Reviewed Review of Systems Review of Systems Constitutional: No chills, No diaphoresis EENTM: No ear pain, No blurred vision, No double vision Respiratory: No cough, No dyspnea on exertion Cardiovascular: No chest pain Gastrointestinal: abdominal pain; No diarrhea, No nausea, No vomiting Genitourinary: denies burning, denies discharge, denies dysuria, denies frequency Musculoskeletal: No back pain, No joint pain (SOHAIL MCADAMS) All Other Systemes Reviewed Negative Unless Noted: Yes (SOHAIL MCADAMS) Past Gkqhnqm-Eroxop-Avjkxy Hx Patient Social History Tobacco Use?: Yes Tobacco type used: Cigarettes Substance use?: No Alcohol Use?: No Pt feels they are or have been: No (SOHAIL MCADAMS) Immunizations Up To Date First/Initial COVID19 Vaccinat: DENIES (SOHAIL MCADAMS) Past Medical History Surgeries: Yes Section, Thyroidectomy, Tonsillectomy Respiratory: No Cardiac: No Neurological: No Reproductive Disorders: Yes (3 MISCARRIAGES) Genitourinary: No UTI-Chronic Gastrointestinal: No Musculoskeletal: No Endocrine: No HEENT: No Cancer: Yes Skin, Cervical Psychosocial: Yes Anxiety, Schizophrenia Integumentary: No Blood Disorders: No (SOHAIL MCADAMS) Physical Exam Vital Signs Vital Signs - First Documented 07/23/23 16:35 Temp 36.8 Pulse 81 Resp 18 B/P (MAP) 140/77 (98) Pulse Ox 100 Capillary Refill : Height, Weight, BMI Height: 5'0" Weight: 120lbs. oz. 54.081816im; 33.00 BMI Method:Stated General Appearance: WD/WN, no apparent distress HEENT: PERRL/EOMI, normal ENT inspection, TMs normal, pharynx normal Neck: non-tender, full range of motion, supple Cardiovascular: regular rate, rhythm, no edema, no gallop, no JVD Respiratory: chest non-tender, lungs clear, normal breath sounds, no respiratory distress, no accessory muscle use Gastrointestinal: normal bowel sounds, soft, no organomegaly, tenderness (Bilateral lower abdominal tenderness. Normal bowel sounds throughout. 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 tested, no motor/sensory deficits, alert, normal mood/affect Skin: normal color, warm/dry (SOHAIL MCADAMS) Progress/Results/Core Measures Suspected Sepsis SIRS Temperature: Pulse: 81 Respiratory Rate: 18 Laboratory Tests 07/23/23 17:28: White Blood Count 11.8H Blood Pressure 140 /77 Mean: 98 Laboratory Tests 07/23/23 17:28: Creatinine 0.81, INR Comment 0.9, Platelet Count 355, Total Bilirubin 0.2 (SOHAIL MCADAMS) Results/Orders Lab Results Laboratory Tests Test 07/23/23 17:28 07/23/23 17:31 Range/Units White Blood Count 11.8 H 4.3-11.0 10^3/uL Red Blood Count 3.65 L 3.80-5.11 10^6/uL Hemoglobin 11.8 11.5-16.0 g/dL Hematocrit 35 35-52 % Mean Corpuscular Volume 97 80-99 fL Mean Corpuscular Hemoglobin 32 25-34 pg Mean Corpuscular Hemoglobin Concent 33 32-36 g/dL Red Cell Distribution Width 12.7 10.0-14.5 % Platelet Count 355 130-400 10^3/uL Mean Platelet Volume 9.1 9.0-12.2 fL Immature Granulocyte % (Auto) 0 % Neutrophils (%) (Auto) 76 H 42-75 % Lymphocytes (%) (Auto) 17 12-44 % Monocytes (%) (Auto) 5 0-12 % Eosinophils (%) (Auto) 2 0-10 % Basophils (%) (Auto) 0 0-10 % Neutrophils # (Auto) 8.9 H 1.8-7.8 10^3/uL Lymphocytes # (Auto) 2.0 1.0-4.0 10^3/uL Monocytes # (Auto) 0.6 0.0-1.0 10^3/uL Eosinophils # (Auto) 0.2 0.0-0.3 10^3/uL Basophils # (Auto) 0.0 0.0-0.1 10^3/uL Immature Granulocyte # (Auto) 0.1 0.0-0.1 10^3/uL Prothrombin Time 12.6 12.2-14.7 SEC INR Comment 0.9 0.8-1.4 Activated Partial Thromboplast Time 30 24-35 SEC Sodium Level 139 135-145 MMOL/L Potassium Level 3.4 L 3.6-5.0 MMOL/L Chloride Level 104 98-107 MMOL/L Carbon Dioxide Level 24 21-32 MMOL/L Anion Gap 11 5-14 MMOL/L Blood Urea Nitrogen 13 7-18 MG/DL Creatinine 0.81 0.60-1.30 MG/DL Estimat Glomerular Filtration Rate 96 BUN/Creatinine Ratio 16 Glucose Level 119 H 70-105 MG/DL Calcium Level 9.9 8.5-10.1 MG/DL Corrected Calcium 9.7 8.5-10.1 MG/DL Total Bilirubin 0.2 0.1-1.0 MG/DL Aspartate Amino Transf (AST/SGOT) 25 5-34 U/L Alanine Aminotransferase (ALT/SGPT) 25 0-55 U/L Alkaline Phosphatase 149 H 40-136 U/L Total Protein 7.6 6.4-8.2 GM/DL Albumin 4.3 3.2-4.5 GM/DL Human Chorionic Gonadotropin, Quant 7425 H <5 MIU/ML Urine Color RED H Urine Clarity CLOUDY H Urine pH 6.0 5-9 Urine Specific [place] 1.015 L 1.016-1.022 Urine Protein 3+ H NEGATIVE Urine Glucose (UA) NEGATIVE NEGATIVE Urine Ketones NEGATIVE NEGATIVE Urine Nitrite NEGATIVE NEGATIVE Urine Bilirubin NEGATIVE NEGATIVE Urine Urobilinogen 0.2 < = 1.0 MG/DL Urine Leukocyte Esterase TRACE H NEGATIVE Urine RBC (Auto) 3+ H NEGATIVE Urine RBC TNTC H /HPF Urine WBC 2-5 /HPF Urine Squamous Epithelial Cells 5-10 /HPF Urine Crystals NONE /LPF Urine Bacteria FEW H /HPF Urine Casts NONE /LPF Urine Mucus NEGATIVE /LPF Urine Culture Indicated NO My Orders Orders - SOHAIL MCADAMS Cbc And Automated Diff (07/23/23 17:22) Comprehensive Metabolic Panel (07/23/23 17:22) Partial Thromboplastin Time (07/23/23 17:22) Protime With Inr (07/23/23 17:22) Hcg,Quantitative (07/23/23 17:22) Ua Culture If Indicated (07/23/23 17:22) Type And Screen (07/23/23 20:13) Vital Signs/I&O 07/23/23 07/23/23 16:35 19:18 Temp 36.8 36.8 Pulse 81 88 Resp 18 18 B/P (MAP) 140/77 (98) 112/69 Pulse Ox 100 96 Capillary Refill : Blood Pressure Mean: 98 (SOHAIL MCADAMS) Departure Communication (PCP) Patient is a 38-year-old female who is G8, P3 presents ED with vaginal bleeding. She was seen at [facility] on July 27. Had an ultrasound performed which showed concern for miscarriage. Since then she has had intermittent bleeding with episodes of bright red blood and clots. This seems to be worse when she get up and move around. Patient follows Dr. Carrillo. History of miscarriage in the past. Generalized lab work, hemoglobin, Rh was ordered. Lab called and states patient is Rh+. Patient did not need RhoGAM. She has lower abdominal cramping. She refused pelvic exam. Did obtain a urinalysis beta quant and general lab work. CBC showed hemoglobin 11.8 white blood count 11.8. Normal coags. Beta quant 7425. No heart tones. Urine did note blood. No evidence of infection. Not able to obtain ultrasound during the evenings. I do think patient would benefit getting a outpatient ultrasound for continued monitoring of this miscarriage. Patient is not requiring any blood products at this time. Suggest follow-up with your DEPUTY [employer]OR [employer] Dr. Brown in the next 1 to 2 days for reevaluation. If continued symptoms patient may need a D&C. If any worsening bleeding, weakness fatigue, pale to return back to ED. Patient vital signs are stable. Before discharge patient started feeling dizzy. Patient had to lay down. Patient bled through her jeans. Attempted to get a pelvic exam. Contacted Dr. Brown DEPUTY [employer] on-call. Patient would likely benefit with a D&C. Dr. Brown came to see patient here in the ED. Bedside ultrasound showed blood products in the uterus. She did perform a pelvic exam. Recommended patient to go to the OR for D&C. (SOHAIL MCADAMS) Impression Primary Impression: Incomplete miscarriage Disposition: 30 STILL A PATIENT Condition: Stable Departure-Patient Inst. Decision time for Depature: 19:05 (SOHAIL MCADAMS) Referrals: [facility] [place] ([place]) Primary Care Physician TORRIE BROWN DO Patient Instructions: Miscarriage (DC) Add. Discharge Instructions: Need to follow-up with your DEPUTY [employer]OR [employer] Dr. Carrillo in the next 1 to 2 days for reevaluation. Recommend outpatient ultrasound for further evaluation. If any worsening symptoms such as weakness fatigue paleness to return back to ED. All discharge instructions reviewed with patient and/or family. Voiced understanding. Scripts Doxycycline Hyclate (Doxycycline Hyclate) 100 Mg Tablet 100 MG PO BID, #14 TAB Prov: TORRIE BROWN DO 07/23/23 Ibuprofen (Ibuprofen) 800 Mg Tablet 800 MG PO Q4H PRN for PAIN, #30 TAB Prov: TORRIE BROWN DO 07/23/23 Work/School Note: Work Release Form Date Seen in the Emergency Department: Jul 23, 2023 Return to Work: Jul 27, 2023 ATTENDING PHYSICIAN NOTE: I was physically present as attending physician in the emergency department during the care of this patient, but I was not directly involved in the decision making or delivery of care for this patient. (MILLER HARRIS MD) SOHAIL MCADAMS Jul 23, 2023 17:46 MILLER HARRIS MD Jul 24, 2023 17:18
[2023-07-23 17:47] LABS: BILIRUBIN,TOTAL 0.2 MG/DL (0.1-1.0)
[2023-07-23 17:48] LABS: CREATININE SERUM 0.81 MG/DL (0.60-1.30)
[2023-07-23 17:51] LABS: CLARITY,URINE CLOUDY; COLOR,URINE RED
[2023-07-23 17:52] LABS: BACTERIA,URINE FEW /HPF; BILIRUBIN,URINE NEGATIVE (NEGATIVE); GLUCOSE, URINE (UA) NEGATIVE (NEGATIVE); KETONES,URINE NEGATIVE (NEGATIVE); LEUKOCYTE ESTERASE ,URINE TRACE (NEGATIVE); NITRITE,URINE NEGATIVE (NEGATIVE); PROTEIN,URINE 3+ (NEGATIVE); RBC,URINE TNTC /HPF
--- NOTE | 2023-07-23 20:26 | Consultation ---
History of Present Illness History of Present Illness Patient Consulted On(errol/time) 07/23/23 20:21 Date Seen by Provider: Jul 23, 2023 Time Seen by Provider: 20:10 Reason for Visit: Incomplete AB History of Present Illness This 38-year-old female presented to the ED for complaints of vaginal bleeding that started on July 18 and increasing abdominal pain/cramping. She went to [facility] on 07/18/2023 for similar complaints. She was stable at that time and discharged and instructed to follow-up with her BED RUBBER. Since that time she has continued to bleed and today the bleeding got much worse where she started having very heavy bleeding and cramping. She states that she has bleeding bright red blood and it has been going through several pads with clotting and tissue. She denies being on blood thinners. She denies any shortness of air, chest pain. n/v, fever or chills, dysuria. Patient states that she is a G8, P3 and has had multiple miscarriages in the past. Patient states that she went to an clinic in [place] and has had 2 suction D&Cs at that time. Patient states that she has had 1 section and 2 vaginal deliveries. Allergies and Home Medications Allergies Coded Allergies: No Known Drug Allergies (Unverified , 09/08/10) Patient Home Medication List Home Medication List Reviewed: Yes Hydrocodone Bit/Ibuprofen (Vicoprofen 200-7.5 Mg Tab) 1 Each Tablet, 1 EACH OP Q 4 - 6 HRS PRN PRN for PAIN Prescribed by: RL FARFAN on 04/05/142023 Last Action: Reviewed Methylprednisolone (Methylprednisolone Dose Pack) 4 Mg Tab.ds.pk, 4 MG PO UD Prescribed by: ANUP CERVANTES on 03/04/21 1748 Last Action: Reviewed Ondansetron (Ondansetron Odt) 4 Mg Tab.rapdis, 4 MG PO Q6H PRN for NAUSEA /VOMITING Prescribed by: PONCHO LANDIS on 02/23/23 1646 Last Action: Reviewed Past Dcvvcgs-Dbmjfq-Dgdxce Hx Patient Social History Tobacco Use?: Yes Tobacco type used: Cigarettes Smoking Status: Current Everyday Smoker Substance use?: No Alcohol Use?: No Pt feels they are or have been: No Immunizations Up To Date First/Initial COVID19 Vaccinat: DENIES Seasonal Allergies Seasonal Allergies: No Past Medical History Surgeries: Yes Section, Thyroidectomy, Tonsillectomy Respiratory: No Cardiac: No Neurological: No Hx : 8 Hx Para: 3 Reproductive Disorders: Yes (3 MISCARRIAGES) Genitourinary: No UTI-Chronic Gastrointestinal: No Musculoskeletal: No Endocrine: No HEENT: No Cancer: Yes Skin, Cervical Psychosocial: Yes Anxiety, Schizophrenia Integumentary: No Blood Disorders: No Review of Systems-General Constitutional: No diaphoresis, No malaise EENTM: No double vision, No tearing, No nose congestion Respiratory: No orthopnea, No phlegm, No stridor Cardiovascular: No palpitations, No syncope Gastrointestinal: No nausea, No vomiting Genitourinary: No dysuria, No hematuria; other (Vaginal bleeding) Skin: No rash Psychiatric/Neurological: See HPI; Denies Anxiety, Denies Depressed, Denies Pre-Existing Deficit, Denies Other Physical Exam-General Problems Physical Exam Vital Signs Vital Signs - First Documented 07/23/23 16:35 Temp 36.8 Pulse 81 Resp 18 B/P (MAP) 140/77 (98) Pulse Ox 100 Capillary Refill : General Appearance: WD/WN, no apparent distress Eyes: Bilateral Eye Normal Inspection, Bilateral Eye PERRL Neck: non-tender, full range of motion Respiratory: chest non-tender, lungs clear, normal breath sounds, no respiratory distress, no accessory muscle use Cardiovascular: regular rate, rhythm, no edema Gastrointestinal: normal bowel sounds, non tender, soft, no organomegaly, no pulsatile mass Genital/Rectal: normal genital exam, other (Bedside ultrasound was performed uterus was visualized there is noted to be a large amount of debris in the uterine cavity but no fetus was visualized.) Extremities: non-tender, normal inspection, no pedal edema, no calf tenderness Neurologic/Psychiatric: 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 The patient had ample opportunity to ask any and all of her questions which were answered to her satisfaction. She verbalized understanding signed consents and is ready to proceed to suction D&C. Admission Status: Other SY PEREZ DO Jul 23, 2023 20:26
[2023-07-23] MEDS ORDERED: NS IV 1000 ML 1,000 ML IV STA (20:28)
[2023-07-23] MEDS ORDERED: LIDOCAINE PF 2% 5 ML VIAL ONE (20:53)
[2023-07-23] MEDS ORDERED: ONDANSETRON INJECTION 4 MG/2 ML (SDV) ONE (20:53)
[2023-07-23] MEDS ORDERED: proPOfol INJECTION 200 MG/20 ML VIAL IV ONE (20:53)
[2023-07-23] MEDS ORDERED: MIDAZOLAM INJ 2 MG/2 ML VIAL ONE (20:54)
[2023-07-23] MEDS ORDERED: fentaNYL INJECTION 100 MCG/2 ML VIAL ONE (20:55)
[2023-07-23] MEDS ORDERED: LACTATED RINGERS 1,000 ML 1,000 ML IV PRN (21:00)
[2023-07-23] MEDS ORDERED: PHENYLEPHRINE 100 MCG/ML 10 ML (ANESTHESIA) SYR ONE (21:33)
[2023-07-23] MEDS ORDERED: SEVOFLURANE (ULTANE) 15 ML INHAL SOLN ONE (21:34)
[2023-07-23] MEDS ORDERED: OXYTOCIN INJECTION 10 UNIT/ML VIAL ONE ×2 (21:38→21:39)
[2023-07-23] MEDS ORDERED: SUCCINYLCHOLINE INJ 20 MG/1 ML 10 ML VIAL ONE (21:39)
[2023-07-23] MEDS ORDERED: ONDANSETRON INJECTION 4 MG/2 ML (SDV) IVP PRN (22:00)
[2023-07-23] MEDS ORDERED: fentaNYL INJECTION 100 MCG/2 ML VIAL IVP ONE (22:00)
[2023-07-23] MEDS ORDERED: HYDROmorphone INJECTION 2 MG/ML VIAL IV ONE (22:00)
--- NOTE | 2023-07-23 22:06 | OB/GYN Operative Report ---
Operative Report Date of Procedure:Jul 23, 2023 Preoperative Diagnosis: Incomplete AB Postoperative Diagnosis: Same Name of the Procedure: Suction D&C Surgeon: Sy Perez Facility Worker(s): [none] Anesthesia: General ETA Indications for Procedure: This 38-year-old G8, P3 presented to the ED with increasing vaginal bleeding and cramping. Was discovered that she was by about 12 weeks by LMP. She did have products of conception at the os and the os was dilated. She was bleeding heavily. Blood type was B+ We discussed risk benefits and alternatives of this procedure in detail. Patient had her questions answered to her satisfaction, signed consents and is ready to proceed. Findings of the Procedure: Incomplete AB and products of conception Complications: None Disposition: Counts correct x2 patient taken to recovery room in stable condition. Description of the Procedure: Informed consent was obtained and signed patient was taken to the OR [facility]. 4 placed under general tracheal anesthesia placed in the dorsal lithotomy position prepped and draped usual sterile fashion. A timeout was performed. A pelvic examination under esthesia revealed a slightly enlarged uterus about a 10 to 12 weeks size no adnexal masses. The bladder was drained with a straight cath for 200 cc. A weighted speculum was placed into the posterior vaginal vault and an Allis clamp was used to grasp the anterior lip of the cervix. A 12 Brazilian curved suction catheter was then inserted into the uterine cavity. Suction was applied and the products of conception were removed from the uterine cavity without any difficulty. The suction catheter was passed 3 times. A blunt curette was used to feel the edges of the uterine cavity it was noted that the products of conception were removed. The suction catheter was then cleared with normal saline. The Allis clamp and weighted speculum were removed and the uterus was massaged to help it to clamp down to decrease bleeding. 20 units of Pitocin was given into the IV bag to also help clamp the uterus down. The estimated blood loss was 25 cc fluids were 500 cc and urine output was 200 cc. All my counts were correct x2 and the patient was taken to recovery room in stable condition SY PEREZ DO Jul 23, 2023 22:06
[2023-07-23] MEDS ORDERED: DOXY100T2 PO (22:08)
[2023-07-23] MEDS ORDERED: IBUP-1780 PO (22:08)
--- NOTE | 2023-07-23 22:08 | Discharge Inst-Simple/Standard ---
Discharge Inst-Standard Reconcile Patient Problems Problems Reviewed?: Yes Discharge Medications New, Converted or Re-Newed RX: Transmitted to Pharmacy Patient Instructions/Follow Up Plan of Care/Instructions/FU: Follow-up in 7 to 10 days Nothing in the vaginano sex, tampons or douching Call if increased pain, bleeding or temperature over 100.4 F Activity as Tolerated: Yes Discharge Diet: Regular Diet SY PEREZ DO Jul 23, 2023 22:08
--- NOTE | 2023-07-24 15:44 | Anesthesia-General Post-Op ---
General Patient Condition Mental Status/LOC: Same as Preop Cardiovascular: Satisfactory Nausea/Vomiting: Absent Respiratory: Satisfactory Pain: Controlled Complications: Absent Post Op Complications Complications None Follow Up Care/Instructions Patient Instructions None needed. Anesthesia/Patient Condition Patient Condition Patient is already discharged to home. She was doing well yesterday with no complaints after the procedure and discharged to home with stable vital signs, no apparent adverse anesthesia problems. No complications reported per nursing. LIEN MORALES DO Jul 24, 2023 15:44
== END 2023-07-23 23:59 | disposition home or self-care (01) ==
LOC: EDUNIT# 16:18 → ER 16:20 → SDC 20:21
PROVIDERS: ATTEND Obstetrics & Gynecology
DX: O03.4 Incomplete spontaneous abortion without complication (principal); F17.210 Nicotine dependence, cigarettes, uncomplicated
CPT/HCPCS: 36415; 80053; 81000; 84702; 85025; 85610; 85730; 86850; 86900; 86901